=== PATIENT | female | born 1965 | race Caucasian/White ===

== ENCOUNTER 2019-10-23 08:06 | Day surgery (SDC) | payer OTHER, SELFPAY ==
[~2019-10-23] VITALS: Ht 157.5 cm; Wt 59.0 kg
[2019-10-23] MEDS ORDERED: diphenhydrAMINE 50 MG/ML VIAL ONE (09:52)
[2019-10-23] MEDS ORDERED: MIDAZOLAM 2 MG/2 ML VIAL ONE ×2 (09:52→09:53)
[2019-10-23] MEDS ORDERED: fentaNYL citrate 0.05 MG/ML VIAL ONE (09:53)
[2019-10-23] MEDS ORDERED: LIDOCAINE 2% 100 MG/5 ML UJET TP ONE (09:53)
[2019-10-23] MEDS ORDERED: MIDAZOLAM 2 MG/2 ML VIAL IVP ONE (10:45)
[2019-10-23] MEDS ORDERED: fentaNYL citrate 0.05 MG/ML VIAL IVP ONE (10:45)
== END 2019-10-23 11:45 | disposition home or self-care (01) ==
LOC: MDS 08:06 → MFCC 08:21 → MDS 11:45
PROVIDERS: ATTEND Internal Medicine Gastroenterology
DX: Z12.11 Encounter for screening for malignant neoplasm of colon (principal); K57.30 Diverticulosis of large intestine without perforation or abscess without bleeding; Z90.710 Acquired absence of both cervix and uterus; Z11.59 Encounter for screening for other viral diseases
CPT/HCPCS: 45378; J2250; J3010; U0003; J1200

== ENCOUNTER 2020-07-01 06:23 | Day surgery (SDC) | payer OTHER, SELFPAY ==
[~2020-07-01] VITALS: Ht 157.5 cm; Wt 62.1 kg
[2020-07-01] MEDS ORDERED: fentaNYL citrate 0.05 MG/ML VIAL ONE (07:39)
[2020-07-01] MEDS ORDERED: diphenhydrAMINE 50 MG/ML VIAL ONE (07:39)
[2020-07-01] MEDS ORDERED: MIDAZOLAM 5 MG/5 ML VIAL ONE (07:40)
[2020-07-01] MEDS ORDERED: fentaNYL citrate 0.05 MG/ML VIAL IVP ONE (08:20)
[2020-07-01] MEDS ORDERED: MIDAZOLAM 2 MG/2 ML VIAL IVP ONE (08:20)
== END 2020-07-01 08:55 | disposition home or self-care (01) ==
LOC: MDS 06:23 → MMU 06:24 → MDS 08:55
PROVIDERS: ATTEND Internal Medicine Gastroenterology
DX: K30 Functional dyspepsia (principal); K20.90 Esophagitis, unspecified without bleeding; Z98.51 Tubal ligation status; Z90.710 Acquired absence of both cervix and uterus; Z79.899 Other long term (current) drug therapy
CPT/HCPCS: 43239; 87426; J2250; J3010; J1200

== ENCOUNTER 2022-06-02 06:53 | Day surgery (SDC) | payer OTHER ==
[~2022-06-02] VITALS: Ht 157.5 cm; Wt 63.5 kg
[2022-06-02] MEDS ORDERED: fentaNYL citrate 0.05 MG/ML VIAL ONE (08:00)
[2022-06-02] MEDS ORDERED: MIDAZOLAM 5 MG/5 ML VIAL ONE (08:00)
[2022-06-02] MEDS ORDERED: diphenhydrAMINE 50 MG/ML VIAL ONE (08:00)
[2022-06-02] MEDS ORDERED: MIDAZOLAM 5 MG/5 ML VIAL IV ONE (14:00)
[2022-06-02] MEDS ORDERED: fentaNYL citrate 0.05 MG/ML VIAL IVP ONE (14:00)
== END 2022-06-02 09:26 | disposition home or self-care (01) ==
LOC: MDS 06:53 → MMU 06:54 → MDS 09:26
PROVIDERS: ATTEND Internal Medicine Gastroenterology
DX: K21.00 Gastro-esophageal reflux disease with esophagitis, without bleeding (principal); K31.7 Polyp of stomach and duodenum; E78.5 Hyperlipidemia, unspecified; E03.9 Hypothyroidism, unspecified; R10.30 Lower abdominal pain, unspecified; Z79.899 Other long term (current) drug therapy; Z90.710 Acquired absence of both cervix and uterus; Z20.822 Contact with and (suspected) exposure to COVID-19
CPT/HCPCS: 43239; 87426; J2250; J3010; 88305; 88312; 88313; 88342; J1200